=== PATIENT | male | born 1985 | race Caucasian/White ===

== ENCOUNTER 2017-05-28 08:31 | Emergency (ER) | payer MEDICAID ==
[~2017-05-28] VITALS: Ht 185.4 cm; Wt 99.8 kg
[2017-05-28 09:15] VITALS: BP_SYST 128
[2017-05-28 11:52] VITALS: BP_SYST 128
== END 2017-05-28 11:52 | disposition home or self-care (01) ==
LOC: SED 08:31
DX: M54.5 Low back pain (principal)
CPT/HCPCS: 99282